=== PATIENT | male | born 1955 | race Caucasian/White ===

== ENCOUNTER 2016-10-24 06:11 | Day surgery (SDC) | payer OTHER ==
[2016-10-24] MEDS ORDERED: LACTATED RINGERS 1,000 ML ONE (06:23)
[2016-10-24] MEDS ORDERED: IV START KIT ONE (06:23)
[2016-10-24] MEDS ORDERED: PROPOFOL 40 ML IV ONE (07:06)
[2016-10-24] MEDS ORDERED: LACTATED RINGERS 1,000 ML IV SCH (08:00)
--- NOTE | 2016-10-26 08:37 | SURGPATH ---
[facility] [address] [place] [id number] Patient Name: JOSE MIGUEL FARFAN MR#: [id number] : 1955 Gender: M Specimen #: [id number] Collected: 10/24/2016 Received: 10/25/2016 Reported: 10/26/2016 Submitting Phys: JERRICA KIM Copy To Phys: ALTAF CARRERA [facility] Clinical History / Pre-Operative Diagnosis: Screening colonoscopy Specimen Source / Surgical Procedure Performed: Transverse colon polyp hot snare Interpretation: TRANSVERSE COLON POLYP, BIOPSY: - HYPERPLASTIC POLYP Electronically Signed Out Jayme Hardwick M.D. Gross Description: The specimen is received in formalin labeled with the patient's name and "transverse colon polyp". The specimen consists of a single fragment of diane soft tissue, 0.3 cm in greatest dimension. Submitted in toto in one cassette ANN MARIE Schmitt Microscopic Description: Microscopic performed. 1: [id number] K63.5
== END 2016-10-24 08:15 | disposition home or self-care (01) ==
LOC: SDC 06:11
PROVIDERS: ATTEND Surgery
PROC: 0DBL8ZX Excision of Transverse Colon, Via Natural or Artificial Opening Endoscopic, Diagnostic (ICD-10-PCS; principal; 2016-10-24)
DX: Z12.11 Encounter for screening for malignant neoplasm of colon (principal); K63.5 Polyp of colon; K57.30 Diverticulosis of large intestine without perforation or abscess without bleeding; K64.1 Second degree hemorrhoids; N40.0 Benign prostatic hyperplasia without lower urinary tract symptoms